=== PATIENT | male | born 1970 | race Caucasian/White ===

== ENCOUNTER 2018-09-30 15:13 | Emergency (ER) | payer OTHER ==
[2018-09-30 15:32] VITALS: RESP 18; TEMP 97.7
[2018-09-30] MEDS ORDERED: SULFAMETHOX-TMP 800-160MG 1 EACH TAB PO STA (16:10)
[2018-09-30] MEDS ORDERED: KETOROLAC 60 MG/2 ML VIAL IM STA (16:10)
[2018-09-30] MEDS ORDERED: CEPHALEXIN 500MG STARTER PACK 4 CAP BTL PO STA (16:10)
[2018-09-30] MEDS ORDERED: SULFAMETH-TMP DS STARTER PACK 2 TAB BTL PO STA (16:10)
[2018-09-30] MEDS ORDERED: CEPHALEXIN 500 MG CAP PO STA (16:10)
[2018-09-30] MEDS ORDERED: DIPH,PERTUS(ACELL)TETVAC-LF 0.5 ML VIAL IM ONE (16:40)
--- NOTE | 2018-09-30 16:49 | ED ---
General Adult HPI - General Chief complaint: Extremity Injury, Lower Stated complaint: Swollen knee Time Seen by Provider: 09/30/18 15:34 Source: patient, RN notes reviewed, old records reviewed Mode of arrival: ambulatory Limitations: no limitations - History of Present Illness Initial comments: 47-year-old male patient comes to ED for evaluation of possible infection involving his right knee. Patient reports that approximately [place], felt something sharp puncture his right anterior knee distal to the patella. Patient reports then subsequent days she developed redness and swelling at that site of the puncture. Patient reports that he had Keflex at home and took 4 days of Keflex 1500 mg per day. Patient reports that the area of swelling and erythema came to a head at which she popped it and pus drained out in the area improved. Patient reports that he has developed swelling at his right prepatellar bursa. 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 Patient states that he normally wears kneepads. Patient was seen at urgent care and they recommended presentation to ED. Patient is ambulatory, has full range of motion of knee, denies any systemic signs of infection, fevers or chills. Systemic: Pt denies fatigue, fever/chills, rash. Pt denies weakness, night sweats, weight loss. Neuro: Pt denies headache, visual disturbances, syncope or pre-syncope. HEENT: Pt denies ocular discharge or irritation, otalgia, rhinorrhea, pharyngitis or notable lymphadenopathy. Cardiopulmonary: Pt denies chest pain, SOB, heart palpitations, dyspnea on exertion. Abdominal/GI: Pt denies abdominal pain, n/v/d. : Pt denies dysuria, burning w/ urination, frequency/urgency. Denies new onset urinary or bowel incontinence. MSK: Pt denies myalgia, loss of strength or function in extremities. Neuro: Pt denies new onset weakness, paresthesias. - Related Data Previous Rx's Medication Instructions Recorded Cephalexin [Keflex] 500 mg PO Q6HR 14 Days cap 09/30/18 Sulfamethox-Tmp 800-160Mg [Bactrim 1 tab PO Q12HR 14 Days tab 09/30/18 DS 800-160 mg] Allergies Allergy/AdvReac Type Severity Reaction Status Date / Time No Known Allergies Allergy Verified 09/30/18 15:27 Review of Systems ROS Statement: Those systems with pertinent positive or pertinent negative responses have been documented in the HPI. ROS Other: All systems not noted in ROS Statement are negative. Past Medical History Past Medical History: No Reported History History of Any Multi-Drug Resistant Organisms: None Reported Past Surgical History: Tonsillectomy Additional Past Surgical History / Comment(s): pyleonitis cyst off of tail bone, oral surgery Past Psychological History: No Psychological Hx Reported Smoking Status: Current every day smoker Past Alcohol Use History: Occasional Past Drug Use History: None Reported, Marijuana General Exam - General Exam Comments Initial Comments: Constitutional: NAD, AOX3, Pt has pleasant affect. HEENT: NC/AT, trachea midline, neck supple, no lymphadenopathy. Posterior pharynx non erythematous, without exudates. External ears appear normal, without discharge. Mucous membranes moist. Eyes PERRLA, EOM intact. There is no scleral icterus. No pallor noted. Cardiopulmonary: RRR, no murmurs, rubs or gallops, no JVD noted. Lungs CTAB in anterior and posterior castrejon. No peripheral edema. Abdominal exam: Abdomen soft and non-distended. Abdomen non-tender to palpation in all 4 quadrants. Bowel sounds active in LLQ. No hepatosplenomegaly. No ecchymosis Neuro: CN II-XII grossly intact. No nuchal rigidity. No raccon eyes, no huerta sign, no hemotympanum. No cervical spinal tenderness. MSK: Full range of motion of right knee, ambulatory without difficulty, prepatellar bursitis, no erythema or warmth, no streaking. Site of suspected previous superficial abscess healing well, no cellulitic changes. Distal pulses intact and equal.. No posterior calf tenderness bilaterally, homans sign negative bilaterally. Posterior tibialis and radial pulse +2 bilaterally. Sensation intact in upper and lower extremities. Full active ROM in upper and lower extremities, 5/5 stregnth. Limitations: no limitations Course Vital Signs 09/30/18 15:27 Temperature 97.7 F Pulse Rate 85 Respiratory 18 Rate Blood Pressure 128/66 O2 Sat by Pulse 99 Oximetry Medical Decision Making - Medical Decision Making 47-year-old male patient comes to ED for evaluation of possible infection involving his right knee. Patient reports that approximately one [place] the [place], notes [place], felt something sharp puncture his right anterior knee distal to the patella. Patient reports then subsequent days she developed redness and swelling at that site of the puncture. Patient reports that he had Keflex at home and took 4 days of Keflex 1500 mg per day. Patient reports that the area of swelling and erythema came to a head at which she popped it and pus drained out in the area improved. Patient reports that he has developed swelling at his right prepatellar bursa. 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 Patient states that he normally wears kneepads. Patient was seen at urgent care and they recommended presentation to ED. Patient is ambulatory, has full range of motion of knee, denies any systemic signs of infection, fevers or chills. Pt VSS, afebrile. Physical exam displayed: Full range of motion of right knee, ambulator y without difficulty, prepatellar bursitis, no erythema or warmth, no streaking. Site of suspected previous superficial abscess healing well, no cellulitic changes. Distal pulses intact and equal.. No posterior calf tenderness bilaterally, homans sign negative bilaterally. Posterior tibialis and radial pulse +2 bilaterally. Sensation intact in upper and lower extremities. Full active ROM in upper and lower extremities, 5/5 stregnth. Pt will be started on bactrim, keflex, anti inflammatories, close outpatient f/u with orthopedics. Pt declined imaging of knee. Strict return precautions discussed. Case discussed with Dr. Spivey. Disposition Clinical Impression: Prepatellar bursitis Disposition: HOME SELF-CARE Condition: Stable Instructions (If sedation given, give patient instructions): Knee Bursitis (ED) Additional Instructions: Patient to adhere to previously discussed treatment plan and will take medication(s) as directed. Patient to follow up with PCP in 1-2 days. Patient to return to ED if symptoms do not improve. Medications directed. Follow-up with orthopedics on Tuesday. Return immediately to ER if condition worsens. Use [id number] ibuprofen for inflammation. Prescriptions: Sulfamethox-Tmp 800-160Mg [Bactrim DS 800-160 mg] 1 tab PO Q12HR 14 Days tab Cephalexin [Keflex] 500 mg PO Q6HR 14 Days cap Is patient prescribed a controlled substance at d/c from ED?: No Referrals: Shaw Valente DO [Primary Care Provider] - 1-2 days Kike Hudson DO [Doctor of Osteopathic Medicine] - 1-2 days
[2018-09-30 17:33] VITALS: BP 121/67; PULSE 81
== END 2018-09-30 17:34 | disposition home or self-care (01) ==
LOC: EC 15:13
DX: M70.41 Prepatellar bursitis, right knee (principal); Z23 Encounter for immunization; F17.200 Nicotine dependence, unspecified, uncomplicated
CPT/HCPCS: 90715; 99283; 96372; 90471; J1885

== ENCOUNTER 2020-07-03 15:27 | Emergency (ER) | payer OTHER ==
[2020-07-03 15:54] VITALS: BP 134/80; PULSE 81; RESP 18; TEMP 97.9
[2020-07-03] MEDS ORDERED: CEPHALEXIN 500MG STARTER PACK 4 CAP BTL PO STA (17:35)
[2020-07-03] MEDS ORDERED: SULFAMETH-TMP DS STARTER PACK 2 TAB BTL PO STA (17:35)
--- NOTE | 2020-07-03 17:35 | ED ---
Lower Extremity Injury HPI - General Chief Complaint: Extremity Injury, Lower Stated Complaint: R knee infection Time Seen by Provider: 07/03/20 16:27 Source: patient Mode of arrival: ambulatory Limitations: no limitations - History of Present Illness Initial Comments: 49-year-old male presents to the emergency room with a chief complaint of an abscess. Patient reports about one year ago he injured his rightt knee and about 1 week ago he's developed a lesion with some yellow/white pustular discharge from the region. States it is tender to the touch. 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 He denies any fever or chills. States he has full range of motion in the knee and has no difficulty and bleeding. States the lesion is tender to touch. Denies taking medication to alleviate the symptoms. No history of MRSA. - Related Data Previous Rx's Medication Instructions Recorded Cephalexin [Keflex] 500 mg PO Q6HR 14 Days cap 09/30/18 Sulfamethox-Tmp 800-160Mg [Bactrim 1 tab PO Q12HR 14 Days tab 09/30/18 DS 800-160 mg] Allergies Allergy/AdvReac Type Severity Reaction Status Date / Time No Known Allergies Allergy Verified 07/03/20 15:50 Review of Systems ROS Statement: Those systems with pertinent positive or pertinent negative responses have been documented in the HPI. ROS Other: All systems not noted in ROS Statement are negative. Past Medical History Past Medical History: No Reported History History of Any Multi-Drug Resistant Organisms: None Reported Past Surgical History: Tonsillectomy Additional Past Surgical History / Comment(s): pyleonitis cyst off of tail bone, oral surgery Past Psychological History: No Psychological Hx Reported Smoking Status: Current every day smoker Past Alcohol Use History: Occasional Past Drug Use History: Marijuana General Exam Limitations: no limitations General appearance: alert, in no apparent distress Head exam: Present: atraumatic, normocephalic, normal inspection Eye exam: Present: normal appearance, PERRL, EOMI Pupils: Present: normal accommodation ENT exam: Present: normal exam, normal oropharynx, mucous membranes moist, TM's normal bilaterally, normal external ear exam Neck exam: Present: normal inspection, full ROM. Absent: tenderness Respiratory exam: Present: normal lung sounds bilaterally. Absent: respiratory distress, rhonchi, stridor, chest wall tenderness, accessory muscle use Cardiovascular Exam: Present: regular rate, normal rhythm, normal heart sounds. Absent: systolic murmur Extremities exam: Present: full ROM, tenderness (tenderness at the lesion), normal capillary refill, other (Palpable DP and PT bilaterally). Absent: normal inspection (Abscess measuring 2 cm x 3 cm on the lateral aspect of her right knee.), pedal edema, joint swelling, calf tenderness Back exam: Present: normal inspection, full ROM. Absent: tenderness, CVA tenderness (R), CVA tenderness (L) Neurological exam: Present: alert, oriented X3, normal gait Psychiatric exam: Present: normal affect, normal mood Skin exam: Present: warm, dry, intact, normal color Course Vital Signs 07/03/20 15:50 Temperature 97.9 F Pulse Rate 81 Respiratory 18 Rate Blood Pressure 134/80 O2 Sat by Pulse 97 Oximetry Procedures - Incision & Drainage Consent Obtained: verbal consent Indication: Abscess Site: lower extremity (Right knee) Size (cm): 3 Anesthetic Used: lidocaine 1%, with epi Amount (mLs): 2 I&D Cleaning Method: Alcohol Wipe Sterile Field Used?: No Scalpel Used: #11 Needle Aspiration Performed?: No I&D Drainage Obtained: Pus, Blood Culture Obtained?: No Complications: pain, bleeding Patient Tolerated Procedure: well, no complications Medical Decision Making - Medical Decision Making 49-year-old male presents to emergency Department with a chief complaint of an abscess. On physical examination, he does have a abscess located on the lateral right knee. This does not appear to be septic knee. He has no difficulty and bleeding. He has full range of motion of the knee without any difficulties or pain. Incision and drainage performed and was able to remove pus and blood. He will be started on Bactrim and Keflex. Wound care structures discussed. Case discussed with Dr. Yadav. Disposition Clinical Impression: Abscess Disposition: HOME SELF-CARE Condition: Stable Instructions (If sedation given, give patient instructions): Abscess (ED) Additional Instructions: Please return to the Emergency Department if symptoms worsen or any other concerns. Is patient prescribed a controlled substance at d/c from ED?: No Referrals: Shaw Valente DO [Primary Care Provider] - 1-2 days Time of Disposition: 17:35
[2020-07-03] MEDS ORDERED: ACET/COD 300 MG/30 MG STARTER PACK 6 TAB BTL PO STA (17:41)
== END 2020-07-03 17:48 | disposition home or self-care (01) ==
LOC: EC 15:27
DX: L02.415 Cutaneous abscess of right lower limb (principal); F17.200 Nicotine dependence, unspecified, uncomplicated; F12.90 Cannabis use, unspecified, uncomplicated
CPT/HCPCS: 10060; 99282

== ENCOUNTER 2020-08-02 13:49 | Emergency (ER) | payer OTHER ==
[2020-08-02 13:55] VITALS: BP 144/89; PULSE 67; RESP 20; TEMP 97.9
[2020-08-02] MEDS ORDERED: LIDOCAINE 1% INJ 10MG/ML (20 ML MDV) SQ ONE (14:16)
[2020-08-02] MEDS ORDERED: Acetaminophen-Codeine 300-30mg TAB PO STA (14:16)
--- NOTE | 2020-08-02 14:40 | XR ---
Result: History: Pain. Comparison: None available. Technique: 3 views of the right knee. Findings: No acute fracture or dislocation is seen. The visualized osseous structures are in anatomic alignmen t. The joint spaces are preserved. There is no significant knee joint effusion. There is prepatella r soft tissue edema. No soft tissue gas. Impression: Prepatellar soft tissue edema without acute osseous abnormality.
--- NOTE | 2020-08-02 15:18 | ED ---
General Adult HPI - General Chief complaint: Extremity Problem,Nontraumatic Stated complaint: R knee infection Time Seen by Provider: 08/02/20 14:01 Source: patient, RN notes reviewed Mode of arrival: ambulatory Limitations: no limitations - History of Present Illness Initial comments: Patient is a 49-year-old male presents to emergency department complaining of right knee abscess. He notes that he was here several weeks ago for the same thing got it incision and drained and given Bactrim and Keflex. He notes that he went on vacation after that and continue take antibiotics. He noted that it did get better while on antibiotics. 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 She denied any other issues or complaints. He noted that he wanted to come in to get reevaluated to make sure there was no bone involvement. Patient denied any chest pain shortness breath headache nausea vomiting diarrhea constipation fever fatigue chills. Patient did have full range of motion and sensation and strength in his right lower extremity. - Related Data Previous Rx's Medication Instructions Recorded Cephalexin [Keflex] 500 mg PO Q6HR 14 Days cap 09/30/18 Sulfamethox-Tmp 800-160Mg [Bactrim 1 tab PO Q12HR 14 Days tab 09/30/18 DS 800-160 mg] Cephalexin [Keflex] 500 mg PO Q6HR #40 cap 07/03/20 Sulfamethox-Tmp 800-160Mg [Bactrim 1 each PO Q12HR #20 tab 07/03/20 Ds] Clindamycin [Cleocin] 450 mg PO Q8H #63 capsule 08/02/20 Allergies Allergy/AdvReac Type Severity Reaction Status Date / Time No Known Allergies Allergy Verified 08/02/20 13:55 Review of Systems ROS Statement: Those systems with pertinent positive or pertinent negative responses have been documented in the HPI. ROS Other: All systems not noted in ROS Statement are negative. Past Medical History Past Medical History: No Reported History History of Any Multi-Drug Resistant Organisms: None Reported Past Surgical History: Tonsillectomy Additional Past Surgical History / Comment(s): pyleonitis cyst off of tail bone, oral surgery Past Psychological History: No Psychological Hx Reported Smoking Status: Current every day smoker Past Alcohol Use History: Occasional Past Drug Use History: Marijuana General Exam Limitations: no limitations General appearance: alert, in no apparent distress Head exam: Present: atraumatic, normocephalic, normal inspection Eye exam: Present: normal appearance, PERRL, EOMI. Absent: scleral icterus, conjunctival injection, periorbital swelling Neck exam: Present: normal inspection Respiratory exam: Present: normal lung sounds bilaterally. Absent: respiratory distress, wheezes, rales, rhonchi, stridor Cardiovascular Exam: Present: regular rate, normal rhythm, normal heart sounds. Absent: systolic murmur, diastolic murmur, rubs, gallop, clicks GI/Abdominal exam: Present: soft, normal bowel sounds. Absent: distended, tenderness, guarding, rebound, rigid Extremities exam: Present: normal inspection, full ROM, normal capillary refill. Absent: tenderness, pedal edema, joint swelling, calf tenderness Right Knee exam: Present: tenderness (Over a 3 cm x 3 similar fluctuant area.), erythema, full knee extension. Absent: swelling, abrasion, laceration Neurological exam: Present: alert, oriented X3, CN II-XII intact Psychiatric exam: Present: normal affect, normal mood Course Vital Signs 08/02/20 13:52 Temperature 97.9 F Pulse Rate 67 Respiratory 20 Rate Blood Pressure 144/89 O2 Sat by Pulse 100 Oximetry Procedures - Incision & Drainage Consent Obtained: verbal consent Site: lower extremity (Right knee) Size (cm): 3 Anesthetic Used: lidocaine 1% Amount (mLs): 7 I&D Cleaning Method: Alcohol Wipe, Betadine Sterile Field Used?: Yes Scalpel Used: #11 I&D Drainage Obtained: Pus (Very minimal), Blood Culture Obtained?: Yes Patient Tolerated Procedure: well Medical Decision Making - Medical Decision Making Patient is a 49-year-old male complaining of a right knee abscess. X-ray was negative for any acute process just showed some prepatellar soft tissue swelling with no soft tissue free air. Vision tolerated the incision and drainage well, approximately 20 mL of blood was expressed. Aerobic swab obtained. Case discussed with Dr. Spivey, patient discharge home on antibiotics with follow-up to primary care. - Radiology Data Radiology results: report reviewed, image reviewed X-ray the right knee: No acute fracture dislocation seen. The visualized osseous structure anatomical line. The joint spaces are preserved. There is no significant joint effusion. There is prepatellar soft tissue edema. No soft tissue gas. Disposition Clinical Impression: Abscess Disposition: HOME SELF-CARE Condition: Stable Instructions (If sedation given, give patient instructions): Abscess Incision and Drainage (ED), Abscess (ED) Additional Instructions: Please return to the Emergency Department if symptoms worsen or any other concerns. Taken Biaxin as prescribed until complete. Avoid constant use or pressure on that right knee to avoid any further inflammatory process until it is healed. Follow-up with primary care in the next 1-2 days. Is patient prescribed a controlled substance at d/c from ED?: No Referrals: Moses Lynch MD [Primary Care Provider] - 1-2 days Time of Disposition: 15:42
[2020-08-02] MEDS ORDERED: ACET/COD 300 MG/30 MG STARTER PACK 6 TAB BTL PO STA (15:41)
== END 2020-08-02 16:21 | disposition home or self-care (01) ==
LOC: SUPCPDRO 13:49 → EC 13:49
DX: L02.415 Cutaneous abscess of right lower limb (principal); F17.200 Nicotine dependence, unspecified, uncomplicated; F12.90 Cannabis use, unspecified, uncomplicated
CPT/HCPCS: 10060 ×2; 99283 ×2; 87070; 87205; 73562; J2001

== ENCOUNTER 2020-10-30 12:29 | Emergency (ER) | payer BC, OTHER ==
--- NOTE | 2020-10-30 13:08 | ED ---
General Adult HPI - General Chief complaint: Abdominal Pain Stated complaint: Possible Hernia Time Seen by Provider: 10/30/20 12:35 Source: patient, RN notes reviewed, old records reviewed Mode of arrival: ambulatory Limitations: no limitations - History of Present Illness Initial comments: This a 49-year-old male presents emergency department complaining of right-sided abdominal pain. 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 Patient was concerned that there was a hernia but he did not feel any bulging or anything protruding. Patient states ever since then it hurts when he sneezes or illicit something heavy other than that it doesn't hurt at all. Patient denies any fever chills or cough per patient denies any bulging from that area ever. Patient states it's slightly point tender if he presses on it. Patient denies any nausea vomiting or diarrhea. - Related Data Previous Rx's Medication Instructions Recorded Cephalexin [Keflex] 500 mg PO Q6HR 14 Days cap 09/30/18 Sulfamethox-Tmp 800-160Mg [Bactrim 1 tab PO Q12HR 14 Days tab 09/30/18 DS 800-160 mg] Cephalexin [Keflex] 500 mg PO Q6HR #40 cap 07/03/20 Sulfamethox-Tmp 800-160Mg [Bactrim 1 each PO Q12HR #20 tab 07/03/20 Ds] Clindamycin [Cleocin] 450 mg PO Q8H #63 capsule 08/02/20 Ibuprofen [Motrin] 600 mg PO Q6HR PRN #20 tab 10/30/20 Allergies Allergy/AdvReac Type Severity Reaction Status Date / Time No Known Allergies Allergy Verified 08/02/20 13:55 Review of Systems ROS Statement: Those systems with pertinent positive or pertinent negative responses have been documented in the HPI. ROS Other: All systems not noted in ROS Statement are negative. Past Medical History Past Medical History: No Reported History History of Any Multi-Drug Resistant Organisms: None Reported Past Surgical History: Tonsillectomy Additional Past Surgical History / Comment(s): pyleonitis cyst off of tail bone, oral surgery Past Psychological History: No Psychological Hx Reported Smoking Status: Current every day smoker Past Alcohol Use History: Occasional Past Drug Use History: Marijuana General Exam - General Exam Comments Initial Comments: GENERAL: Patient is well-developed and well-nourished. Patient is nontoxic and well- hydrated and is in mild distress. ENT: Neck is full range of motion EYES: The sclera were anicteric and conjunctiva were pink and moist. Extraocular movements were intact and pupils were equal round and reactive to light. Eyelids were unremarkable. ABDOMEN: Soft and nontender with normal bowel sounds. There is an area of point tenderness is slightly tender on palpation however there is no bulging or deficits noted in that area. SKIN: Skin is clear with no lesions or rashes and otherwise unremarkable. NEUROLOGIC: Patient is alert and oriented x3. Cranial nerves II through XII are grossly intact. Motor and sensory are also intact. Normal speech, volume and content. Symmetrical smile. MUSCULOSKELETAL: Normal extremities with adequate strength and full range of motion. No lower extremity swelling or edema. No calf tenderness. PSYCHIATRIC: Normal psychiatric evaluation. Limitations: no limitations Course Vital Signs 10/30/20 12:35 Temperature 97.9 F Pulse Rate 77 Respiratory 19 Rate Blood Pressure 151/87 O2 Sat by Pulse 98 Oximetry Disposition Clinical Impression: Abdominal muscle strain Disposition: HOME SELF-CARE Condition: Good Instructions (If sedation given, give patient instructions): Muscle Strain (ED) Additional Instructions: Patient should not do any heavy lifting. Patient should get an abdominal binder. Patient states Motrin as prescribed. Prescriptions: Ibuprofen [Motrin] 600 mg PO Q6HR PRN #20 tab PRN Reason: For pain Is patient prescribed a controlled substance at d/c from ED?: No Referrals: Moses Lynch MD [Primary Care Provider] - 1-2 days Lucius Hayes MD [Medical Doctor] - 1-2 days Time of Disposition: 13:08
[2020-10-30 13:27] VITALS: BP 152/78; PULSE 74; RESP 20; TEMP 98
== END 2020-10-30 13:27 | disposition home or self-care (01) ==
LOC: EC 12:29
DX: S39.011A Strain of muscle, fascia and tendon of abdomen, initial encounter (principal); F17.200 Nicotine dependence, unspecified, uncomplicated; F12.90 Cannabis use, unspecified, uncomplicated; X50.0XXA Overexertion from strenuous movement or load, initial encounter
CPT/HCPCS: 99283

== ENCOUNTER 2024-04-08 04:13 | Emergency (ER) | payer BC ==
[2024-04-08 04:19] VITALS: TEMP 97.6
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
[2024-04-08] MEDS: HYDROcodone/APAP 5-325MG 1 EACH TAB PO STA (05:47)
[2024-04-08 06:10] VITALS: BP 148/82; PULSE 76; RESP 16
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
== END 2024-04-08 06:10 | disposition home or self-care (01) ==
LOC: EC 04:13
DX: S43.401A Unspecified sprain of right shoulder joint, initial encounter (principal); S00.12XA Contusion of left eyelid and periocular area, initial encounter; F17.200 Nicotine dependence, unspecified, uncomplicated; Y09 Assault by unspecified means; Y92.511 Restaurant or cafe as the place of occurrence of the external cause
CPT/HCPCS: 99284